=== PATIENT | female | born 2000 | race Caucasian/White ===

== ENCOUNTER 2023-10-19 08:42 | Emergency (ER) | payer OTHER ==
[~2023-10-19] VITALS: Ht 162.6 cm; Wt 68.5 kg
[2023-10-19 09:10] VITALS: BP 125/90
--- OUTSIDE RECORDS SUMMARY | 2023-10-19 09:31 | XMS ---
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 Adela VISIT COUNT (12 MO.) [address] [place] Megan [address] [place], [place] [address]MeganMegan TOTAL 5 NOTE: Visits indicate total known visits. ED/UCC VISIT TRACKING (12 MO.) 10/19/2023 08:43 MARI Orta [place] TYPE: Emergency COMPLAINT: - LT ANKLE/FOOT PAIN 07/28/2023 17:20 Miller Kathleen GAVIRIA [place] TYPE: Emergency 04/24/2023 13:26 Miller Kathleen GAVIR[facility] [place] TYPE: Emergency 02/17/2023 08:58 Miller HMegan GAVIRIA [place] TYPE: Emergency 10/28/2022 01:17 [facility] Sarah FELIX [place] TYPE: Emergency DIAGNOSES: - Headache, unspecified INPATIENT VISIT TRACKING (12 MO.) No inpatient visits to display in this time frame [email or web address]
== END 2023-10-19 09:11 | disposition home or self-care (01) ==
LOC: ED 08:42
DX: S90.02XA Contusion of left ankle, initial encounter (principal); X50.1XXA Overexertion from prolonged static or awkward postures, initial encounter; Z91.040 Latex allergy status
CPT/HCPCS: 73610; 99283